=== PATIENT | male | born 1965 | race Caucasian/White ===

== ENCOUNTER 2024-06-24 15:26 | Emergency (ER) | payer OTHER ==
[~2024-06-24] VITALS: Ht 172.7 cm; Wt 66.0 kg
[2024-06-24 15:32] VITALS: BP 126/80
[2024-06-24] MEDS ORDERED: LIDOcaine HCl 1% (Local Anesth.) 20 ML VIAL STI STA (15:32)
[2024-06-24] MEDS ORDERED: POVIDONE IODINE 0.5 OZ/BTL TOP ONE (15:35)
[2024-06-24] MEDS ORDERED: SODIUM CHLORIDE 1,000 ML BTL IR ONE (15:35)
[2024-06-24] MEDS ORDERED: Diph, Acellular Pertussis, Tet 0.5 ML/VIAL (Tdap) SDV IM ONE (15:35)
[2024-06-24 16:11] VITALS: BP 126/80
[2024-06-24] MEDS ORDERED: KEFLEX500 MG PO (16:14)
== END 2024-06-24 16:28 | disposition home or self-care (01) | DRG 605 ==
LOC: ED 15:26
PROC: 0HQGXZZ Repair Left Hand Skin, External Approach (ICD-10-PCS; principal; 2024-06-24)
DX: S61.012A Laceration without foreign body of left thumb without damage to nail, initial encounter (principal); W29.3XXA Contact with powered garden and outdoor hand tools and machinery, initial encounter; Y92.009 Unspecified place in unspecified non-institutional (private) residence as the place of occurrence of the external cause